=== PATIENT | female | born 1960 | race Hispanic/Latino ===

== ENCOUNTER 2018-06-17 11:36 | Outpatient (CLI) | payer OTHER ==
--- NOTE | 2018-06-17 14:25 | RAD ---
RADIOGRAPH LEFT WRIST THREE VIEWS: Date: 06-17-18 Comparison: 57-year-old female with persistent post-traumatic left wrist pain after fall two weeks ago. FINDINGS: There is no dislocation. No fracture of the carpals bones or distal ulna identified. No dislocation. Transversely oriented faint linear lucency across the distal radial metaphysis may represent trabecul ar markings rather than a nondisplaced fracture, although this is not certain. There is an ulna plus. IMPRESSION: 1. Ulnar positive variance. 2. No definitive acute or subacute fracture identified. 3. If symptoms do not improve, consider noncontrast MRI of the wrist. POS: [facility]
== END 2018-06-17 11:37 | disposition home or self-care (01) ==
LOC: BICRAD 11:36
PROVIDERS: ATTEND Nurse Practitioner Family
DX: S69.92XA Unspecified injury of left wrist, hand and finger(s), initial encounter (principal)